=== PATIENT | male | born 1995 | race African-American/Black ===

== ENCOUNTER 2017-03-19 00:27 | Emergency (ER) | payer OTHER ==
[~2017-03-19 00:27] MED LIST: PREDNISONE20 MG PO; PROAIR HFA0.09 MG/AC IH; RT ADVAIR 128 DISKUS IH; ZYRTEC 10MG10 MG PO
[2017-03-19 00:29] VITALS: TEMP 98
[2017-03-19 00:47] LABS: BASO # 0.1 (0.0-0.2); BASO % 0.8 % (0.0-2.0); EOS # 0.4 (0.0-0.7); EOS % 6.8 % (0-4.0); GRAN # 2.6 (1.4-6.5); GRAN % 41.9 % (42.2-75.2); HEMATOCRIT 47.7 % (42.0-52.0); HEMOGLOBIN 16.7 g/dl (13.5-18.0); LYMPH # 2.8 (1.2-3.4); LYMPH % 44.7 % (20.0-51.0); MEAN CELL VOLUME 77 fl (80.0-100.0); MEAN CORPUSCULAR HEMOGLOBIN 27 pg (27.0-31.0); MEAN CORPUSCULAR HGB CONC 35 g/dl (33.0-37.0); MEAN PLATELET VOLUME 9.6 fl (7.4-10.4); MONO # 0.3 (0.1-0.6); MONO % 5.3 % (1.7-9.3); PLATELET COUNT 273 K/mm3 (130-400); RED BLOOD COUNT 6.22 M/mm3 (4.20-5.60); REDCELL DISTRIBUTION WIDTH-CV 15.5 % (11.5-14.5)
[2017-03-19 00:57] LABS: ALBUMIN 4.9 gm/dL (3.5-5.0); BILIRUBIN,TOTAL 1.1 mg/dL (0.0-1.0); CALCIUM 9.6 mg/dL (8.4-10.2); CREATININE, serum 1.08 mg/dL (0.66-1.25); POTASSIUM 3.9 mmol/L (3.4-5.0); TOTAL PROTEIN 7.8 gm/dL (6.4-8.2)
[2017-03-19 03:45] VITALS: BP 128/88; PULSE 61
== END 2017-03-19 03:47 | disposition short-term general hospital (02) ==
LOC: COL.ER 00:27
PROVIDERS: Emergency Medicine
DX: S06.2X0A Diffuse traumatic brain injury without loss of consciousness, initial encounter (principal); S06.300A Unspecified focal traumatic brain injury without loss of consciousness, initial encounter; J45.909 Unspecified asthma, uncomplicated; V89.2XXA Person injured in unspecified motor-vehicle accident, traffic, initial encounter; Y92.410 Unspecified street and highway as the place of occurrence of the external cause
CPT/HCPCS: J2405; J7030

== ENCOUNTER 2020-10-24 08:25 | Emergency (ER) | payer OTHER ==
[~2020-10-24] VITALS: Ht 167.6 cm; Wt 68.2 kg
[2020-10-24 08:32] VITALS: TEMP 98.3
[2020-10-24] MEDS ORDERED: PROAIR HFA0.09 MG/AC IH (10:05)
[2020-10-24] MEDS ORDERED: FLOVENT 110MCG7.9 GM IH (10:05)
[2020-10-24] MEDS ORDERED: PREDNISONE20 MG PO (10:05)
[2020-10-24 10:22] VITALS: BP 140/88; PULSE 83
== END 2020-10-24 10:22 | disposition home or self-care (01) ==
LOC: COL.ER 08:25
DX: J45.901 Unspecified asthma with (acute) exacerbation (principal)
CPT/HCPCS: J7512

== ENCOUNTER 2022-01-15 14:46 | Emergency (ER) | payer SELFPAY ==
[~2022-01-15 14:46] MED LIST changes: +FLOVENT 110MCG7.9 GM IH
== END 2022-01-15 15:32 | disposition left against medical advice (07) ==
LOC: COL.ER 14:46
DX: R69 Illness, unspecified (principal)